=== PATIENT | female | born 1945 | race Two or more races ===

== ENCOUNTER 2020-12-04 11:08 | Inpatient (IN) | payer OTHER ==
[~2020-12-04] VITALS: Ht 152.4 cm; Wt 61.5 kg
[2020-12-04 12:14] LABS: Basophils # (auto) 0.1 10 ^3/uL (0-0.2); Basophils % (auto) 0.7 % (0.0-2.0); Eosinophils # (auto) 0 10 ^3/uL (0-0.8); Hematocrit 43.9 % (36.0-46.0); Hemoglobin 14.8 g/dL (12.2-16.2); Lymphocytes # (auto) 1.5 10 ^3/uL (0.4-5.4); Lymphocytes % (auto) 12.4 % (10.0-50.0); Mean Corpuscular Hemoglobin 30.1 pg (28.0-32.0); Mean Corpuscular Hgb Conc. 33.8 g/dL (32.0-36.0); Mean Corpuscular Volume 89.1 fL (80.0-100.0); Monocytes # (auto) 0.4 10 ^3/uL (0-1.3); Monocytes % (auto) 3.2 % (0.0-12.0); Neutrophils # (auto) 10.3 10 ^3/uL (1.6-8.6); Neutrophils % (auto) 83.7 % (37.0-80.0); Nucleated Red Blood Cells % 0.1 %; Platelet Count (auto) 335 10^3/uL (140-450); Red Blood Cells 4.93 10^6/uL (4.0-5.20); White Blood Cell 12.3 10^3/uL (4.4-10.8)
[2020-12-04 12:33] LABS: Albumin 3.6 g/dL (3.4-5.0); Anion Gap 7 (5-15); Blood Urea Nitrogen 20 mg/dL (7-18); Calcium 9.5 mg/dL (8.5-10.1); Carbon Dioxide 28 mmol/L (21-32); Chloride 100 mmol/L (98-107); Potassium 3.6 mmol/L (3.5-5.1); Sodium 135 mmol/L (136-145)
[2020-12-04 12:36] LABS: Lactic Acid w/Reflex 2.3 mmol/L (0.4-2.0)
[2020-12-04 12:38] LABS: Alanine Aminotransferase 21 U/L (13-56); Alkaline Phosphatase 129 U/L (45-117); Aspartate Aminotransferase 9 U/L (15-37); GFR African American 77 mL/min; GFR Non-African American 64 mL/min
[2020-12-04 12:43] LABS: Glucose 415 mg/dL (74-106)
[2020-12-04] MEDS ORDERED: SODIUM CHLORIDE 0.9% 1,000 ML IV ONE (13:00)
[2020-12-04] MEDS ORDERED: cloNIDine HCL 0.1 MG TAB PO ONE ×2 (13:00→15:30)
[2020-12-04] MEDS ORDERED: SODIUM CHLORIDE 0.9% 1,000 ML IVB ONE (13:00)
[2020-12-04 15:41] LABS: INR 0.93 (0.9-1.15)
[2020-12-04 18:05] LABS: Urine Bacteria MANY /hpf (None Seen); Urine Blood Negative /uL (Negative); Urine Mucus FEW (None Seen); Urine Specific Gravity 1.013 (1.001-1.035); Urine WBC 65 /hpf (0 - 5); Urine WBC Clumps PRESENT /hpf (None Seen)
[2020-12-04] MEDS ORDERED: cefTRIAXone 1GM/50ML D5W 50 ML IV ONE (19:45)
[2020-12-04] MEDS ORDERED: HYDROcodone-ACET 5/325MG TAB PO PRN (21:00)
[2020-12-04] MEDS ORDERED: ONDANSETRON HCL 4 MG/2 ML VIAL IV PRN (21:00)
[2020-12-04] MEDS ORDERED: DEXTROSE (50%) 50ML SYRG IV PRN (21:00)
[2020-12-04] MEDS ORDERED: DOCUSATE SOD 100 MG CAP PO PRN (21:00)
[2020-12-04] MEDS: cefTRIAXone 1GM/50ML D5W 50 ML IV SCH (21:31)
[2020-12-04] MEDS: SODIUM CHLORIDE 0.9% 1,000 ML IV SCH (22:03)
[2020-12-05] MEDS: InsuLIN REG 1unit/0.01ml Soln (100units/ml) SC SCH ×7 (00:09→22:14)
[2020-12-05] MEDS: ACCU-CHEK COMFORT CURVE STRIP VI SCH ×7 (00:12→22:15)
[2020-12-05 02:45] VITALS: BP 139/107
[2020-12-05 03:02] VITALS: BP 148/95
[2020-12-05 08:02] LABS: Basophils # (auto) 0.1 10 ^3/uL (0-0.2); Basophils % (auto) 0.8 % (0.0-2.0); Eosinophils # (auto) 0 10 ^3/uL (0-0.8); Eosinophils % (auto) 0.2 % (0.0-7.0); Hematocrit 39.6 % (36.0-46.0); Hemoglobin 13.5 g/dL (12.2-16.2); Lymphocytes # (auto) 1.4 10 ^3/uL (0.4-5.4); Lymphocytes % (auto) 11.7 % (10.0-50.0); Mean Corpuscular Hemoglobin 30.4 pg (28.0-32.0); Mean Corpuscular Volume 89.3 fL (80.0-100.0); Monocytes # (auto) 0.6 10 ^3/uL (0-1.3); Monocytes % (auto) 4.8 % (0.0-12.0); Neutrophils # (auto) 9.6 10 ^3/uL (1.6-8.6); Neutrophils % (auto) 82.5 % (37.0-80.0); Platelet Count (auto) 298 10^3/uL (140-450); Red Blood Cells 4.44 10^6/uL (4.0-5.20); White Blood Cell 11.6 10^3/uL (4.4-10.8)
[2020-12-05] MEDS ORDERED: cloNIDine HCL 0.1 MG TAB ONE (08:10)
[2020-12-05] MEDS: cloNIDine HCL 0.1 MG TAB PO PRN (08:12)
[2020-12-05 08:23] LABS: Calcium 8.3 mg/dL (8.5-10.1); Potassium 3.3 mmol/L (3.5-5.1)
[2020-12-05 08:26] LABS: BUN/Creatinine Ratio 23.3
[2020-12-05] MEDS ORDERED: LISI-646 PO (09:52)
[2020-12-05] MEDS ORDERED: LISINOPRIL 20 MG TAB ONE (09:56)
[2020-12-05] MEDS: LISINOPRIL 20 MG TAB PO SCH (10:20)
[2020-12-05] MEDS: SODIUM CHLORIDE 0.9% 1,000 ML IV SCH (13:47)
[2020-12-05 14:20] VITALS: BP 156/73
[2020-12-05 16:00] VITALS: BP 157/78
[2020-12-05] MEDS ORDERED: DEXTROSE (50%) 50ML SYRG IV PRN (16:45)
[2020-12-05] MEDS ORDERED: InsuLIN REG 1unit/0.01ml Soln (100units/ml) SC SCH (18:00)
[2020-12-05] MEDS ORDERED: ACCU-CHEK COMFORT CURVE STRIP VI SCH (18:00)
[2020-12-05] MEDS ORDERED: LORazepam 2MG/ML-1ML VIAL IV PRN (20:45)
[2020-12-05] MEDS: cefTRIAXone 1GM/50ML D5W 50 ML IV SCH (21:00)
[2020-12-05 21:26] LABS: Folate (Folic Acid) 10.3 ng/mL (5.38-24)
[2020-12-05 22:00] VITALS: BP 159/85
[2020-12-05] MEDS: INSULIN LANTUS (GLARGINE) 1 /0.01ml (100units/ml) SC SCH (22:16)
[2020-12-06 05:00] VITALS: BP 166/85
[2020-12-06] MEDS: SODIUM CHLORIDE 0.9% 1,000 ML IV SCH ×2 (06:17→22:46)
[2020-12-06] MEDS: ACCU-CHEK COMFORT CURVE STRIP VI SCH ×4 (06:17→22:25)
[2020-12-06 06:18] LABS: Basophils # (auto) 0.1 10 ^3/uL (0-0.2); Basophils % (auto) 0.7 % (0.0-2.0); Eosinophils # (auto) 0.1 10 ^3/uL (0-0.8); Eosinophils % (auto) 0.7 % (0.0-7.0); Hematocrit 37.9 % (36.0-46.0); Lymphocytes # (auto) 1.7 10 ^3/uL (0.4-5.4); Lymphocytes % (auto) 15.3 % (10.0-50.0); Mean Corpuscular Hemoglobin 30.7 pg (28.0-32.0); Mean Corpuscular Hgb Conc. 34.4 g/dL (32.0-36.0); Mean Corpuscular Volume 89.2 fL (80.0-100.0); Monocytes # (auto) 0.6 10 ^3/uL (0-1.3); Monocytes % (auto) 5.8 % (0.0-12.0); Neutrophils # (auto) 8.5 10 ^3/uL (1.6-8.6); Neutrophils % (auto) 77.5 % (37.0-80.0); Platelet Count (auto) 294 10^3/uL (140-450); Red Blood Cells 4.24 10^6/uL (4.0-5.20); Red Cell Distribution Width 15.3 % (11.8-14.3); White Blood Cell 10.9 10^3/uL (4.4-10.8)
[2020-12-06] MEDS: InsuLIN REG 1unit/0.01ml Soln (100units/ml) SC SCH ×4 (06:18→22:00)
[2020-12-06 06:38] LABS: Calcium 8.2 mg/dL (8.5-10.1); Magnesium 2.1 mg/dL (1.6-2.6); Potassium 3.1 mmol/L (3.5-5.1)
[2020-12-06 06:43] LABS: BUN/Creatinine Ratio 19.8
[2020-12-06 07:40] VITALS: BP 198/87
[2020-12-06] MEDS: cloNIDine HCL 0.1 MG TAB PO PRN (07:42)
[2020-12-06] MEDS: LISINOPRIL 20 MG TAB PO SCH (10:18)
[2020-12-06 13:00] VITALS: BP 159/79
[2020-12-06 16:36] VITALS: BP 163/86
[2020-12-06] MEDS: ASPirin 81 mg TAB PO SCH (18:16)
[2020-12-06] MEDS ORDERED: ATORVASTATIN 20 MG TAB PO SCH (22:00)
[2020-12-06] MEDS: INSULIN LANTUS (GLARGINE) 1 /0.01ml (100units/ml) SC SCH (22:25)
[2020-12-06] MEDS: cefTRIAXone 1GM/50ML D5W 50 ML IV SCH (22:25)
[2020-12-06] MEDS: ATORVASTATIN 20 MG TAB PO SCH (22:25)
[2020-12-07] MEDS: cloNIDine HCL 0.1 MG TAB PO PRN (04:57)
[2020-12-07] MEDS: InsuLIN REG 1unit/0.01ml Soln (100units/ml) SC SCH ×4 (07:01→22:18)
[2020-12-07] MEDS: ACCU-CHEK COMFORT CURVE STRIP VI SCH ×4 (07:01→22:20)
[2020-12-07 08:00] VITALS: BP 177/96
[2020-12-07] MEDS: ASPirin 81 mg TAB PO SCH (09:26)
[2020-12-07] MEDS: LISINOPRIL 20 MG TAB PO SCH (09:27)
[2020-12-07] MEDS: hydrALAZINE HCL 20 MG/ML VL IV PRN ×2 (11:42→17:02)
[2020-12-07 12:00] VITALS: BP 157/87
[2020-12-07 16:00] VITALS: BP 169/96
[2020-12-07 16:50] VITALS: BP 169/96
[2020-12-07 17:55] LABS: BUN/Creatinine Ratio 18.1; Calcium 8.5 mg/dL (8.5-10.1)
[2020-12-07] MEDS ORDERED: CARVEDILOL 3.125 MG TAB PO ONE (18:00)
[2020-12-07 18:22] LABS: Potassium 2.9 mmol/L (3.5-5.1)
[2020-12-07] MEDS: POTASSIUM CHL 20MEQ/100ML 100 ML IV SCH ×2 (20:00→23:15)
[2020-12-07] MEDS: cefTRIAXone 1GM/50ML D5W 50 ML IV SCH (21:00)
[2020-12-07 22:00] VITALS: BP 142/73
[2020-12-07] MEDS: ATORVASTATIN 20 MG TAB PO SCH (22:12)
[2020-12-07] MEDS: INSULIN LANTUS (GLARGINE) 1 /0.01ml (100units/ml) SC SCH (22:19)
[2020-12-08 05:00] VITALS: BP 152/69
[2020-12-08] MEDS: CARVEDILOL 3.125 MG TAB PO SCH ×2 (05:38→17:24)
[2020-12-08] MEDS: InsuLIN REG 1unit/0.01ml Soln (100units/ml) SC SCH ×4 (05:40→22:07)
[2020-12-08] MEDS: ACCU-CHEK COMFORT CURVE STRIP VI SCH ×4 (05:47→22:05)
[2020-12-08 09:00] VITALS: BP 161/79
[2020-12-08] MEDS: LISINOPRIL 20 MG TAB PO SCH (10:06)
[2020-12-08] MEDS: ASPirin 81 mg TAB PO SCH (10:06)
[2020-12-08 13:00] VITALS: BP 148/75
[2020-12-08 17:15] VITALS: BP 183/70
[2020-12-08 19:31] LABS: BUN/Creatinine Ratio 17.8; Calcium 7.8 mg/dL (8.5-10.1); Potassium 3.9 mmol/L (3.5-5.1)
[2020-12-08 20:00] VITALS: BP 148/77
[2020-12-08] MEDS: cefTRIAXone 1GM/50ML D5W 50 ML IV SCH (21:37)
[2020-12-08 22:00] VITALS: BP 148/77
[2020-12-08] MEDS: ATORVASTATIN 20 MG TAB PO SCH (22:05)
[2020-12-08] MEDS: INSULIN LANTUS (GLARGINE) 1 /0.01ml (100units/ml) SC SCH (22:08)
[2020-12-09] MEDS: hydrALAZINE HCL 20 MG/ML VL IV PRN (05:47)
[2020-12-09] MEDS: CARVEDILOL 3.125 MG TAB PO SCH ×2 (06:00→17:44)
[2020-12-09] MEDS: ACCU-CHEK COMFORT CURVE STRIP VI SCH ×4 (06:27→23:10)
[2020-12-09] MEDS: InsuLIN REG 1unit/0.01ml Soln (100units/ml) SC SCH ×4 (06:27→23:31)
[2020-12-09 07:46] LABS: Basophils # (auto) 0.1 10 ^3/uL (0-0.2); Basophils % (auto) 0.9 % (0.0-2.0); Eosinophils # (auto) 0.2 10 ^3/uL (0-0.8); Eosinophils % (auto) 1.8 % (0.0-7.0); Hematocrit 37.8 % (36.0-46.0); Hemoglobin 12.7 g/dL (12.2-16.2); Lymphocytes # (auto) 1.3 10 ^3/uL (0.4-5.4); Lymphocytes % (auto) 12.7 % (10.0-50.0); Mean Corpuscular Hemoglobin 30.1 pg (28.0-32.0); Mean Corpuscular Hgb Conc. 33.7 g/dL (32.0-36.0); Mean Corpuscular Volume 89.3 fL (80.0-100.0); Monocytes # (auto) 0.3 10 ^3/uL (0-1.3); Monocytes % (auto) 2.9 % (0.0-12.0); Neutrophils # (auto) 8.4 10 ^3/uL (1.6-8.6); Neutrophils % (auto) 81.7 % (37.0-80.0); Nucleated Red Blood Cells % 0.1 %; Platelet Count (auto) 303 10^3/uL (140-450); Red Blood Cells 4.23 10^6/uL (4.0-5.20); Red Cell Distribution Width 15.3 % (11.8-14.3); White Blood Cell 10.3 10^3/uL (4.4-10.8)
[2020-12-09 08:01] LABS: Calcium 8.1 mg/dL (8.5-10.1); Magnesium 2.4 mg/dL (1.6-2.6); Potassium 3.8 mmol/L (3.5-5.1)
[2020-12-09 08:03] LABS: BUN/Creatinine Ratio 16.2
[2020-12-09 09:00] VITALS: BP 141/78
[2020-12-09] MEDS: ASPirin 81 mg TAB PO SCH (10:29)
[2020-12-09] MEDS: LISINOPRIL 20 MG TAB PO SCH (10:29)
[2020-12-09 12:39] VITALS: BP 143/88
[2020-12-09 17:30] VITALS: BP 162/78
[2020-12-09] MEDS: ACETAMINOPHEN 325 MG TAB PO PRN (17:45)
[2020-12-09 18:10] LABS: Urine Bacteria FEW /hpf (None Seen); Urine Blood TRACE /uL (Negative); Urine Mucus FEW (None Seen); Urine Specific Gravity 1.009 (1.001-1.035); Urine WBC 251 /hpf (0 - 5)
[2020-12-09] MEDS ORDERED: VANCOMYCIN PER PHARMACY 0 MG IV SCH (18:30)
[2020-12-09] MEDS: SODIUM CHLORIDE 0.9% 1,000 ML IV SCH (19:47)
[2020-12-09 20:00] VITALS: BP 155/74
[2020-12-09] MEDS ORDERED: VANCOMYCIN 1GM/250ML 250 ML IV ONE (21:00)
[2020-12-09 21:03] VITALS: BP 155/74
[2020-12-09] MEDS ORDERED: PIPERACILLIN-TAZOB 3.375GM 100 ML IV SCH (22:00)
[2020-12-09] MEDS: ATORVASTATIN 20 MG TAB PO SCH (23:09)
[2020-12-09] MEDS: INSULIN LANTUS (GLARGINE) 1 /0.01ml (100units/ml) SC SCH (23:32)
[2020-12-10] MEDS: PIPERACILLIN-TAZOB 2.25GM 50 ML IV SCH ×4 (01:00→19:03)
[2020-12-10 04:26] VITALS: BP 146/72
[2020-12-10] MEDS: SODIUM CHLORIDE 0.9% 1,000 ML IV SCH ×2 (04:27→15:00)
[2020-12-10] MEDS: ACETAMINOPHEN 325 MG TAB PO PRN (04:41)
[2020-12-10] MEDS: CARVEDILOL 3.125 MG TAB PO SCH ×2 (05:38→18:03)
[2020-12-10] MEDS: InsuLIN REG 1unit/0.01ml Soln (100units/ml) SC SCH ×4 (06:59→21:54)
[2020-12-10] MEDS: ACCU-CHEK COMFORT CURVE STRIP VI SCH ×4 (06:59→21:42)
[2020-12-10 07:17] LABS: Basophils # (auto) 0.1 10 ^3/uL (0-0.2); Basophils % (auto) 0.4 % (0.0-2.0); Eosinophils # (auto) 0.1 10 ^3/uL (0-0.8); Eosinophils % (auto) 0.6 % (0.0-7.0); Hematocrit 34.9 % (36.0-46.0); Hemoglobin 11.8 g/dL (12.2-16.2); Lymphocytes # (auto) 1.8 10 ^3/uL (0.4-5.4); Lymphocytes % (auto) 12.1 % (10.0-50.0); Mean Corpuscular Hemoglobin 30.1 pg (28.0-32.0); Mean Corpuscular Hgb Conc. 33.9 g/dL (32.0-36.0); Monocytes # (auto) 0.8 10 ^3/uL (0-1.3); Monocytes % (auto) 5.3 % (0.0-12.0); Neutrophils # (auto) 12.2 10 ^3/uL (1.6-8.6); Neutrophils % (auto) 81.6 % (37.0-80.0); Nucleated Red Blood Cells % 0.1 %; Platelet Count (auto) 270 10^3/uL (140-450); Red Blood Cells 3.92 10^6/uL (4.0-5.20); Red Cell Distribution Width 14.9 % (11.8-14.3); White Blood Cell 14.9 10^3/uL (4.4-10.8)
[2020-12-10 07:29] LABS: BUN/Creatinine Ratio 14.3; Calcium 7.7 mg/dL (8.5-10.1); Potassium 3.4 mmol/L (3.5-5.1)
[2020-12-10 09:00] VITALS: BP 140/74
[2020-12-10] MEDS: ASPirin 81 mg TAB PO SCH (10:00)
[2020-12-10] MEDS: LISINOPRIL 20 MG TAB PO SCH (10:00)
[2020-12-10 13:00] VITALS: BP 123/69
[2020-12-10] MEDS ORDERED: IOHEXOL 350 MG/ML 100ML IJ ONE (14:21)
[2020-12-10 17:00] VITALS: BP 142/76
[2020-12-10] MEDS: metroNIDAZOLE 500MG/100ML 100 ML IV SCH ×2 (17:00→23:03)
[2020-12-10 18:28] LABS: Urine Amorphous Crystal FEW /hpf (None Seen); Urine Bacteria NONE SEEN /hpf (None Seen); Urine Blood 3+ /uL (Negative); Urine Mucus FEW (None Seen); Urine Specific Gravity 1.014 (1.001-1.035); Urine WBC 166 /hpf (0 - 5); Urine WBC Clumps PRESENT /hpf (None Seen)
[2020-12-10] MEDS ORDERED: VANCOMYCIN 1GM/250ML 250 ML IV SCH (21:00)
[2020-12-10] MEDS: ATORVASTATIN 20 MG TAB PO SCH (21:42)
[2020-12-10] MEDS: INSULIN LANTUS (GLARGINE) 1 /0.01ml (100units/ml) SC SCH (21:53)
[2020-12-10 22:00] VITALS: BP 124/76
[2020-12-11] MEDS: SODIUM CHLORIDE 0.9% 1,000 ML IV SCH ×3 (01:00→21:44)
[2020-12-11] MEDS: PIPERACILLIN-TAZOB 2.25GM 50 ML IV SCH ×4 (01:16→19:00)
[2020-12-11 05:00] VITALS: BP 134/71
[2020-12-11] MEDS: metroNIDAZOLE 500MG/100ML 100 ML IV SCH ×3 (05:40→21:45)
[2020-12-11] MEDS: ACCU-CHEK COMFORT CURVE STRIP VI SCH ×4 (06:18→21:46)
[2020-12-11] MEDS: CARVEDILOL 3.125 MG TAB PO SCH ×2 (06:19→19:01)
[2020-12-11] MEDS: InsuLIN REG 1unit/0.01ml Soln (100units/ml) SC SCH ×4 (06:20→21:46)
[2020-12-11 07:22] LABS: Basophils # (auto) 0.1 10 ^3/uL (0-0.2); Basophils % (auto) 0.6 % (0.0-2.0); Eosinophils # (auto) 0.4 10 ^3/uL (0-0.8); Eosinophils % (auto) 2.4 % (0.0-7.0); Hematocrit 33.2 % (36.0-46.0); Hemoglobin 11.2 g/dL (12.2-16.2); Lymphocytes # (auto) 1.7 10 ^3/uL (0.4-5.4); Lymphocytes % (auto) 11.3 % (10.0-50.0); Mean Corpuscular Hemoglobin 30.1 pg (28.0-32.0); Mean Corpuscular Hgb Conc. 33.9 g/dL (32.0-36.0); Mean Corpuscular Volume 88.8 fL (80.0-100.0); Monocytes # (auto) 0.8 10 ^3/uL (0-1.3); Monocytes % (auto) 5.4 % (0.0-12.0); Neutrophils # (auto) 12.2 10 ^3/uL (1.6-8.6); Neutrophils % (auto) 80.3 % (37.0-80.0); Platelet Count (auto) 298 10^3/uL (140-450); Red Blood Cells 3.73 10^6/uL (4.0-5.20); Red Cell Distribution Width 15.1 % (11.8-14.3); White Blood Cell 15.2 10^3/uL (4.4-10.8)
[2020-12-11 07:43] LABS: BUN/Creatinine Ratio 16.3; Magnesium 1.9 mg/dL (1.6-2.6); Potassium 3.2 mmol/L (3.5-5.1)
[2020-12-11 09:05] VITALS: BP 132/67
[2020-12-11] MEDS: ASPirin 81 mg TAB PO SCH (09:45)
[2020-12-11] MEDS: LISINOPRIL 20 MG TAB PO SCH (09:46)
[2020-12-11 12:00] VITALS: BP 117/59
[2020-12-11 17:00] VITALS: BP 133/64
[2020-12-11] MEDS: POTASSIUM CHL 20MEQ/100ML 100 ML IV SCH ×2 (18:14→21:58)
[2020-12-11] MEDS: VANCOMYCIN HCL 125MG/5ML ORAL SOL PO SCH (19:01)
[2020-12-11] MEDS: ATORVASTATIN 20 MG TAB PO SCH (21:45)
[2020-12-11] MEDS: INSULIN LANTUS (GLARGINE) 1 /0.01ml (100units/ml) SC SCH (21:46)
[2020-12-11 22:00] VITALS: BP 145/75
[2020-12-12] MEDS: PIPERACILLIN-TAZOB 2.25GM 50 ML IV SCH ×3 (00:03→13:12)
[2020-12-12] MEDS: VANCOMYCIN HCL 125MG/5ML ORAL SOL PO SCH ×5 (00:03→23:59)
[2020-12-12 05:00] VITALS: BP 153/71
[2020-12-12] MEDS: CARVEDILOL 3.125 MG TAB PO SCH ×2 (06:24→18:24)
[2020-12-12] MEDS: metroNIDAZOLE 500MG/100ML 100 ML IV SCH ×3 (06:24→22:00)
[2020-12-12] MEDS: ACCU-CHEK COMFORT CURVE STRIP VI SCH ×4 (06:25→22:00)
[2020-12-12] MEDS: InsuLIN REG 1unit/0.01ml Soln (100units/ml) SC SCH ×4 (06:25→22:12)
[2020-12-12] MEDS: SODIUM CHLORIDE 0.9% 1,000 ML IV SCH ×2 (06:25→15:37)
[2020-12-12 07:02] LABS: Basophils # (auto) 0.1 10 ^3/uL (0-0.2); Basophils % (auto) 0.7 % (0.0-2.0); Eosinophils # (auto) 0.3 10 ^3/uL (0-0.8); Hematocrit 33.6 % (36.0-46.0); Hemoglobin 11.5 g/dL (12.2-16.2); Lymphocytes # (auto) 1.8 10 ^3/uL (0.4-5.4); Mean Corpuscular Hemoglobin 30.6 pg (28.0-32.0); Mean Corpuscular Hgb Conc. 34.2 g/dL (32.0-36.0); Mean Corpuscular Volume 89.6 fL (80.0-100.0); Monocytes # (auto) 0.6 10 ^3/uL (0-1.3); Monocytes % (auto) 3.5 % (0.0-12.0); Neutrophils # (auto) 13.4 10 ^3/uL (1.6-8.6); Neutrophils % (auto) 82.8 % (37.0-80.0); Platelet Count (auto) 322 10^3/uL (140-450); Red Blood Cells 3.75 10^6/uL (4.0-5.20); White Blood Cell 16.3 10^3/uL (4.4-10.8)
[2020-12-12 07:16] LABS: BUN/Creatinine Ratio 11.9; Calcium 7.4 mg/dL (8.5-10.1); Magnesium 1.7 mg/dL (1.6-2.6); Potassium 3.3 mmol/L (3.5-5.1)
[2020-12-12 08:00] VITALS: BP 148/70
[2020-12-12 09:00] VITALS: BP 148/70
[2020-12-12] MEDS: ASPirin 81 mg TAB PO SCH (09:19)
[2020-12-12] MEDS: LISINOPRIL 20 MG TAB PO SCH (09:21)
[2020-12-12 12:47] VITALS: BP 142/70
[2020-12-12 16:51] VITALS: BP 156/72
[2020-12-12] MEDS: ACETAMINOPHEN 325 MG TAB PO PRN (18:25)
[2020-12-12 22:00] VITALS: BP 147/73
[2020-12-12] MEDS: ATORVASTATIN 20 MG TAB PO SCH (22:00)
[2020-12-12] MEDS: INSULIN LANTUS (GLARGINE) 1 /0.01ml (100units/ml) SC SCH (22:12)
[2020-12-13 05:00] VITALS: BP 176/78
[2020-12-13] MEDS: SODIUM CHLORIDE 0.9% 1,000 ML IV SCH (05:05)
[2020-12-13] MEDS: VANCOMYCIN HCL 125MG/5ML ORAL SOL PO SCH ×2 (06:04→13:26)
[2020-12-13] MEDS: metroNIDAZOLE 500MG/100ML 100 ML IV SCH (06:04)
[2020-12-13] MEDS: CARVEDILOL 3.125 MG TAB PO SCH (06:05)
[2020-12-13] MEDS: ACCU-CHEK COMFORT CURVE STRIP VI SCH ×2 (06:05→12:39)
[2020-12-13] MEDS: InsuLIN REG 1unit/0.01ml Soln (100units/ml) SC SCH ×2 (06:25→12:39)
[2020-12-13 06:34] LABS: Basophils # (auto) 0.1 10 ^3/uL (0-0.2); Basophils % (auto) 0.7 % (0.0-2.0); Eosinophils # (auto) 0.4 10 ^3/uL (0-0.8); Eosinophils % (auto) 2.4 % (0.0-7.0); Hematocrit 33.1 % (36.0-46.0); Hemoglobin 11.2 g/dL (12.2-16.2); Lymphocytes # (auto) 2.1 10 ^3/uL (0.4-5.4); Lymphocytes % (auto) 13.8 % (10.0-50.0); Mean Corpuscular Hgb Conc. 33.9 g/dL (32.0-36.0); Mean Corpuscular Volume 88.4 fL (80.0-100.0); Monocytes # (auto) 0.8 10 ^3/uL (0-1.3); Monocytes % (auto) 5.3 % (0.0-12.0); Neutrophils # (auto) 11.8 10 ^3/uL (1.6-8.6); Neutrophils % (auto) 77.8 % (37.0-80.0); Platelet Count (auto) 353 10^3/uL (140-450); Red Blood Cells 3.74 10^6/uL (4.0-5.20); White Blood Cell 15.2 10^3/uL (4.4-10.8)
[2020-12-13 06:55] LABS: BUN/Creatinine Ratio 9.2; Calcium 7.7 mg/dL (8.5-10.1)
[2020-12-13 07:01] LABS: Potassium 2.9 mmol/L (3.5-5.1)
[2020-12-13] MEDS ORDERED: POTASSIUM CHL 20 Meq TABLET PO ONE (07:30)
[2020-12-13] MEDS: ASPirin 81 mg TAB PO SCH (08:35)
[2020-12-13] MEDS: LISINOPRIL 20 MG TAB PO SCH (08:52)
[2020-12-13 09:00] VITALS: BP 149/74
[2020-12-13] MEDS ORDERED: BLOO1KIT22 XX (12:38)
[2020-12-13] MEDS ORDERED: CAR3125T PO (12:38)
[2020-12-13] MEDS ORDERED: ASPI1CHW15 PO (12:38)
[2020-12-13] MEDS ORDERED: ATOR20TA50 PO (12:38)
[2020-12-13] MEDS ORDERED: METR500T PO (12:38)
[2020-12-13] MEDS ORDERED: INSLANTI SC (12:38)
[2020-12-13 13:00] VITALS: BP 142/73
[2020-12-13 15:57] VITALS: BP 149/74
[2020-12-13 17:00] VITALS: BP 146/78
== END 2020-12-13 17:15 | disposition home health service (06) | DRG 64 ==
LOC: ER 11:08 → EDBD 11:08 → TELE 11:09 → TELE-EAST 12-05 14:10 → TELE-CENTR 12-07 07:54 → TELE-EAST 12-11 15:22
PROVIDERS: ADMIT Hospitalist; ATTEND Internal Medicine
DX: I63.89 Other cerebral infarction (principal); G93.41 Metabolic encephalopathy; A41.9 Sepsis, unspecified organism; A04.72 Enterocolitis due to Clostridium difficile, not specified as recurrent; I16.1 Hypertensive emergency; N13.6 Pyonephrosis; Z20.822 Contact with and (suspected) exposure to COVID-19; E11.65 Type 2 diabetes mellitus with hyperglycemia; I10 Essential (primary) hypertension; E87.6 Hypokalemia; F03.90 Unspecified dementia, unspecified severity, without behavioral disturbance, psychotic disturbance, mood disturbance, and anxiety; R29.810 Facial weakness; G83.24 Monoplegia of upper limb affecting left nondominant side; K59.00 Constipation, unspecified; Z83.3 Family history of diabetes mellitus; Z79.899 Other long term (current) drug therapy
CPT/HCPCS: 36415; 70450; 70496; 70498; 70551; 71045; 71250; 74177; 76705; 80048; 80053; 80061; 80202; 81001; 82607; 82746; 82962; 83036; 83605; 83735; 84443; 84484; 85025; 85610; 85730; 87040; 87045; 87086; 87426; 87427; 87493; 93306; 93886; 95819; 96361; 96365; 97110; 97163; 97530; G0378; J0696; J1815; J2543; J3480; J3490

== ENCOUNTER 2020-12-26 12:22 | Inpatient (IN) | payer OTHER ==
[~2020-12-26] VITALS: Ht 299.7 cm; Wt 56.7 kg
[~2020-12-26 12:22] MED LIST: ASPI1CHW15 PO; ATOR20TA50 PO; BLOO1KIT22 XX; CAR3125T PO; INSLANTI SC; LISI-646 PO; METR500T PO
[2020-12-26] MEDS ORDERED: SODIUM CHLORIDE 0.9% 500 ML IVB ONE (12:30)
[2020-12-26 13:50] LABS: Urine Amorphous Crystal FEW /hpf (None Seen); Urine Bacteria FEW /hpf (None Seen); Urine Blood Negative /uL (Negative); Urine Mucus FEW (None Seen); Urine Specific Gravity 1.014 (1.001-1.035); Urine WBC 69 /hpf (0 - 5); Urine WBC Clumps PRESENT /hpf (None Seen)
[2020-12-26 13:54] LABS: Eosinophils # (auto) 0 10 ^3/uL (0-0.8); Neutrophils % (auto) 88.7 % (37.0-80.0)
[2020-12-26 13:56] LABS: Basophils # (auto) 0.2 10 ^3/uL (0-0.2); Basophils % (auto) 0.8 % (0.0-2.0); Hematocrit 40.7 % (36.0-46.0); Hemoglobin 13.4 g/dL (12.2-16.2); Lymphocytes # (auto) 1.6 10 ^3/uL (0.4-5.4); Mean Corpuscular Hemoglobin 28.8 pg (28.0-32.0); Mean Corpuscular Hgb Conc. 32.8 g/dL (32.0-36.0); Mean Corpuscular Volume 87.8 fL (80.0-100.0); Monocytes # (auto) 0.8 10 ^3/uL (0-1.3); Monocytes % (auto) 3.5 % (0.0-12.0); Neutrophils # (auto) 20.6 10 ^3/uL (1.6-8.6); Platelet Count (auto) 564 10^3/uL (140-450); Red Blood Cells 4.63 10^6/uL (4.0-5.20); Red Cell Distribution Width 15.7 % (11.8-14.3); White Blood Cell 23.2 10^3/uL (4.4-10.8)
[2020-12-26 14:12] LABS: Albumin 2.5 g/dL (3.4-5.0); Anion Gap 8 (5-15); Blood Urea Nitrogen 13 mg/dL (7-18); Calcium 8.5 mg/dL (8.5-10.1); Carbon Dioxide 24 mmol/L (21-32); Chloride 105 mmol/L (98-107); Glucose 223 mg/dL (74-106); Potassium 3.8 mmol/L (3.5-5.1); Sodium 137 mmol/L (136-145)
[2020-12-26] MEDS ORDERED: cefTRIAXone 1GM/50ML D5W 50 ML IV ONE (14:15)
[2020-12-26 14:17] LABS: Lactic Acid w/Reflex 3.3 mmol/L (0.4-2.0)
[2020-12-26 14:20] LABS: Alanine Aminotransferase 26 U/L (13-56); Alkaline Phosphatase 122 U/L (45-117); Aspartate Aminotransferase 24 U/L (15-37); BUN/Creatinine Ratio 13.4; Bilirubin, Total 0.6 mg/dL (0.2-1.0); CRP High Sensitivity 1.72 mg/dL (< 0.3); GFR African American 72 mL/min; GFR Non-African American 59 mL/min; Total Protein 8.3 g/dL (6.4-8.2)
[2020-12-26] MEDS ORDERED: SODIUM CHLORIDE 0.9% 1,000 ML IV ONE (15:00)
[2020-12-26] MEDS ORDERED: ACETAMINOPHEN 500 MG TAB PO PRN (15:30)
[2020-12-26] MEDS ORDERED: MORPHINE SULF INJ 2 MG/ML SYRINGE 1ML IV PRN ×2 (15:30)
[2020-12-26] MEDS ORDERED: ONDANSETRON HCL 4 MG/2 ML VIAL IV PRN (15:30)
[2020-12-26] MEDS ORDERED: NITROGLYCERIN 0.4 MG SL TAB SL PRN (15:30)
[2020-12-26] MEDS ORDERED: HYDROcodone-ACET 5/325MG TAB PO PRN (15:30)
[2020-12-26] MEDS ORDERED: DEXTROSE (50%) 50ML SYRG IV PRN (15:30)
[2020-12-26] MEDS: SODIUM CHLORIDE 0.9% 1,000 ML IV SCH ×2 (16:14→23:04)
[2020-12-26] MEDS ORDERED: ACETAMINOPHEN 650 MG RECT SUPP PR ONE ×2 (16:15→16:45)
[2020-12-26] MEDS ORDERED: ACETAMINOPHEN 325 MG TAB PO PRN (16:30)
[2020-12-26] MEDS: CARVEDILOL 3.125 MG TAB PO SCH (16:48)
[2020-12-26] MEDS: InsuLIN REG 1unit/0.01ml Soln (100units/ml) SC SCH ×2 (17:15→22:32)
[2020-12-26] MEDS: ACCU-CHEK COMFORT CURVE STRIP VI SCH ×2 (17:15→22:36)
[2020-12-26] MEDS: ATORVASTATIN 20 MG TAB PO SCH (22:36)
[2020-12-27] MEDS: CARVEDILOL 3.125 MG TAB PO SCH ×2 (03:30→16:33)
[2020-12-27 04:12] VITALS: BP 104/60
[2020-12-27 05:00] VITALS: BP 127/70
[2020-12-27] MEDS: InsuLIN REG 1unit/0.01ml Soln (100units/ml) SC SCH ×4 (06:45→22:00)
[2020-12-27] MEDS: ACCU-CHEK COMFORT CURVE STRIP VI SCH ×4 (06:45→22:00)
[2020-12-27 06:59] LABS: Basophils # (auto) 0.1 10 ^3/uL (0-0.2); Basophils % (auto) 0.6 % (0.0-2.0); Eosinophils # (auto) 0 10 ^3/uL (0-0.8); Eosinophils % (auto) 0.1 % (0.0-7.0); Hematocrit 35.1 % (36.0-46.0); Hemoglobin 11.7 g/dL (12.2-16.2); Lymphocytes % (auto) 14.2 % (10.0-50.0); Mean Corpuscular Hemoglobin 29.4 pg (28.0-32.0); Mean Corpuscular Hgb Conc. 33.3 g/dL (32.0-36.0); Mean Corpuscular Volume 88.3 fL (80.0-100.0); Monocytes # (auto) 0.7 10 ^3/uL (0-1.3); Neutrophils # (auto) 11.1 10 ^3/uL (1.6-8.6); Neutrophils % (auto) 80.1 % (37.0-80.0); Platelet Count (auto) 400 10^3/uL (140-450); Red Blood Cells 3.97 10^6/uL (4.0-5.20); Red Cell Distribution Width 15.9 % (11.8-14.3); White Blood Cell 13.9 10^3/uL (4.4-10.8)
[2020-12-27] MEDS: SODIUM CHLORIDE 0.9% 1,000 ML IV SCH (07:03)
[2020-12-27 07:18] LABS: BUN/Creatinine Ratio 20.3; Calcium 7.5 mg/dL (8.5-10.1); Potassium 3.1 mmol/L (3.5-5.1)
[2020-12-27] MEDS ORDERED: SOD CHL 0.45% 1,000 ML IV SCH (08:45)
[2020-12-27] MEDS ORDERED: POTASSIUM CHLORIDE 20 MEQ, LIDOCAINE 1% (LOCAL ANESTH.) 2 ML in SODIUM CHL 0.9% 100 ML IV ONE (09:00)
[2020-12-27] MEDS: cefTRIAXone 1GM/50ML D5W 50 ML IV SCH (09:19)
[2020-12-27] MEDS: FAMOTIDINE 20 MG TAB PO SCH (09:25)
[2020-12-27] MEDS: ASPirin 81 mg TAB PO SCH (09:25)
[2020-12-27] MEDS: APIXABAN 5 MG TAB PO SCH ×2 (11:31→22:00)
[2020-12-27] MEDS: POTASSIUM CHL 20MEQ/100ML 100 ML IV SCH ×2 (11:31→16:33)
[2020-12-27 12:48] VITALS: BP 135/72
[2020-12-27] MEDS ORDERED: OMEG1CAP65 PO (15:40)
[2020-12-27] MEDS ORDERED: INSLANTI SC (15:40)
[2020-12-27] MEDS ORDERED: CARV6.2551 PO (15:40)
[2020-12-27 16:40] VITALS: BP 123/67
[2020-12-27] MEDS: VANCOMYCIN HCL 125MG/5ML ORAL SOL PO SCH ×3 (17:32→22:00)
[2020-12-27] MEDS ORDERED: VANCOMYCIN HCL 125MG/5ML ORAL SOL GT SCH (18:00)
[2020-12-27 18:41] LABS: BUN/Creatinine Ratio 22.4; Calcium 7.5 mg/dL (8.5-10.1); Potassium 4.2 mmol/L (3.5-5.1)
[2020-12-27 20:00] VITALS: BP 145/66
[2020-12-27 22:00] VITALS: BP 145/66
[2020-12-27] MEDS: ATORVASTATIN 20 MG TAB PO SCH (22:00)
[2020-12-28] VITALS (7 sets, daily range): BP systolic 129–190; BP diastolic 72–102
[2020-12-28] MEDS: CARVEDILOL 3.125 MG TAB PO SCH ×3 (03:30→23:24)
[2020-12-28] MEDS: VANCOMYCIN HCL 125MG/5ML ORAL SOL PO SCH ×4 (06:00→22:00)
[2020-12-28] MEDS: InsuLIN REG 1unit/0.01ml Soln (100units/ml) SC SCH ×4 (06:42→22:00)
[2020-12-28] MEDS: ACCU-CHEK COMFORT CURVE STRIP VI SCH ×4 (06:42→22:00)
[2020-12-28] MEDS: ASPirin 81 mg TAB PO SCH (09:10)
[2020-12-28] MEDS: cefTRIAXone 1GM/50ML D5W 50 ML IV SCH (09:10)
[2020-12-28] MEDS: FAMOTIDINE 20 MG TAB PO SCH (09:11)
[2020-12-28] MEDS: APIXABAN 5 MG TAB PO SCH ×2 (09:11→23:24)
[2020-12-28] MEDS: hydrALAZINE HCL 20 MG/ML VL IV PRN (17:41)
[2020-12-28] MEDS: ATORVASTATIN 20 MG TAB PO SCH (23:24)
[2020-12-29 04:58] VITALS: BP 148/78
[2020-12-29] MEDS: VANCOMYCIN HCL 125MG/5ML ORAL SOL PO SCH ×4 (06:06→21:55)
[2020-12-29] MEDS: ACCU-CHEK COMFORT CURVE STRIP VI SCH ×4 (06:52→21:56)
[2020-12-29] MEDS: InsuLIN REG 1unit/0.01ml Soln (100units/ml) SC SCH ×4 (06:52→22:02)
[2020-12-29 08:00] VITALS: BP 180/87
[2020-12-29] MEDS: cefTRIAXone 1GM/50ML D5W 50 ML IV SCH (08:02)
[2020-12-29 08:42] VITALS: BP 180/87
[2020-12-29] MEDS: APIXABAN 5 MG TAB PO SCH ×4 (08:47→21:56)
[2020-12-29] MEDS: FAMOTIDINE 20 MG TAB PO SCH ×2 (08:47→09:07)
[2020-12-29] MEDS: ASPirin 81 mg TAB PO SCH ×2 (08:47→09:06)
[2020-12-29] MEDS: hydrALAZINE HCL 20 MG/ML VL IV PRN (08:48)
[2020-12-29] MEDS ORDERED: ASPirin 81 mg TAB PO SCH (10:00)
[2020-12-29] MEDS ORDERED: FAMOTIDINE 20 MG TAB PO SCH (10:00)
[2020-12-29 13:00] VITALS: BP 144/83
[2020-12-29] MEDS: CARVEDILOL 3.125 MG TAB PO SCH (15:31)
[2020-12-29 21:46] VITALS: BP 159/84
[2020-12-29] MEDS: ATORVASTATIN 20 MG TAB PO SCH (21:56)
[2021-01-03] MEDS ORDERED: APIXABAN 5 MG TAB PO SCH (10:00)
== END 2020-12-29 22:45 | DRG 871 ==
LOC: ER 12:22 → EDBD 12:22 → TELE 15:30 → TELE-CENTR 12-27 02:42
PROVIDERS: ADMIT Nurse Practitioner Acute Care; ATTEND Internal Medicine
DX: A41.9 Sepsis, unspecified organism (principal); G93.41 Metabolic encephalopathy; A04.72 Enterocolitis due to Clostridium difficile, not specified as recurrent; E44.0 Moderate protein-calorie malnutrition; N39.0 Urinary tract infection, site not specified; E86.0 Dehydration; E78.5 Hyperlipidemia, unspecified; E11.9 Type 2 diabetes mellitus without complications; I10 Essential (primary) hypertension; Z20.822 Contact with and (suspected) exposure to COVID-19; Z79.4 Long term (current) use of insulin; Z79.899 Other long term (current) drug therapy; Z91.19 Patient's noncompliance with other medical treatment and regimen; Z86.73 Personal history of transient ischemic attack (TIA), and cerebral infarction without residual deficits; Z68.26 Body mass index [BMI] 26.0-26.9, adult; Z87.440 Personal history of urinary (tract) infections; Z74.01 Bed confinement status
CPT/HCPCS: 36415; 70450; 71045; 80048; 80053; 81001; 82728; 82962; 83605; 84484; 85025; 85379; 86141; 87040; 87081; 87086; 87088; 87186; 87426; 87493; 92610; 93970; 96361; 96365; 97110; 99291; G0378; J0696; J1815; J2001; J3480